=== PATIENT | male | born 1985 | race Caucasian/White ===

== ENCOUNTER 2021-05-31 05:53 | Emergency (ER) | payer OTHER ==
[~2021-05-31] VITALS: Ht 170.2 cm; Wt 74.8 kg
--- NOTE | 2021-05-31 06:22 | NUR ---
TO ER BED 2. BIB SELF C/O ANXIETY X 3 MONTHS, WORSE TODAY. ADMITS TO DAILY ETOH. DENIES CHEST PAIN OR SOB. CONNECTED TO MONITOR. AWAITNG MD JOSE
[2021-05-31] MEDS ORDERED: LORAZEPAM 0.5 MG TABLET ONE (06:46)
[2021-05-31] MEDS ORDERED: ESCITALOPRAM OXALATE (10 MG) 10 MG TABLET ONE (06:46)
--- NOTE | 2021-05-31 06:47 | NUR ---
[phone] [place] [place]
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
[2021-05-31] MEDS ORDERED: FAMOTIDINE (20 MG) 20 MG TABLET ONE (06:58)
[2021-05-31] MEDS ORDERED: ESCITALOPRAM OXALATE (10 MG) 10 MG TABLET PO ONE (07:00)
[2021-05-31] MEDS ORDERED: FAMOTIDINE (20 MG) 20 MG TABLET PO ONE (07:00)
[2021-05-31] MEDS ORDERED: LORAZEPAM 0.5 MG TABLET PO ONE (07:00)
[2021-05-31] MEDS ORDERED: ESCI10TA PO (07:42)
--- NOTE | 2021-05-31 08:02 | NUR ---
[employer] OFFICER AT BEDSIDE.
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
--- NOTE | 2021-05-31 08:20 | NUR ---
PATIENT WAS PROVIDED WITH BUS PASS AND DIRECTION
[2021-05-31] MEDS ORDERED: HYDR-500 PO (08:22)
[2021-05-31 08:41] VITALS: BP 132/81
--- NOTE | 2021-05-31 08:41 | NUR ---
Patient discharged to home in stable condition. Written and verbal after care instructions given. Patient verbalizes understanding of instruction.
== END 2021-05-31 08:42 | disposition home or self-care (01) ==
LOC: ER 05:54
DX: F41.9 Anxiety disorder, unspecified (principal); Z88.0 Allergy status to penicillin; Z79.899 Other long term (current) drug therapy